=== PATIENT | male | born 1980 | race Caucasian/White ===

== ENCOUNTER 2020-06-27 20:43 | Emergency (ER) | payer OTHER ==
[~2020-06-27] VITALS: Ht 178 cm; Wt 75.0 kg
[2020-06-27] MEDS ORDERED: TETANUS,DIPTH,PERTUSS P/F (BOOSTRIX) 0.5 ML VIAL IM ONE (21:15)
--- NOTE | 2020-06-27 21:17 | ED Upper Extremity ---
General Chief Complaint: Laceration Stated Complaint: R ARM LAC Nursing Triage Note: c/o laceration to R arm at 1400 today Nursing Sepsis Screen: No Definite Risk History of Present Illness Date Seen by Provider: Jun 27, 2020 Time Seen by Provider: 21:16 Initial Comments This is a 40-year-old male who presents to the ER with a laceration to his right elbow that occurred at 1400 this afternoon. States he was at work when he cut his right elbow on a piece of sheet metal. He continued to work after injury and then proceeded to drink a fifth of vodka for the pain once he was off work. Sta cristo his friend made him come in to have the laceration taken care of. He does not recall his last tetanus at this time. No other injuries or concerns reported. Allergies and Home Medications Allergies Coded Allergies: No Known Drug Allergies (Unverified , 06/27/20) Home Medications Cephalexin 500 Mg Tablet, 500 MG PO TID Prescribed by: TANYA BOO on 06/27/203 Patient Home Medication List Home Medication List Reviewed: Yes Review of Systems Constitutional: no symptoms reported EENTM: no symptoms reported Respiratory: no symptoms reported Cardiovascular: no symptoms reported Gastrointestinal: no symptoms reported Genitourinary: no symptoms reported Musculoskeletal: no symptoms reported Skin: see HPI Psychiatric/Neurological: No Symptoms Reported Past [id number] Hx Patient Social History Alcohol Use: Denies Use Recreational Drug Use: No Recent Foreign Travel: No Contact w/Someone Who Travel: No Recent Infectious Disease Expo: No Past Medical History Surgeries: No Respiratory: No Cardiac: No Neurological: No Genitourinary: No Gastrointestinal: No Musculoskeletal: No Endocrine: No HEENT: No Cancer: No Psychosocial: No Integumentary: No Blood Disorders: No Physical Exam Vital Signs Vital Signs - First Documented 06/27/20 20:49 Temp 36.8 Pulse 128 Resp 18 B/P (MAP) 153/84 (107) Pulse Ox 98 Capillary Refill : Less Than 3 Seconds Height, Weight, BMI Height: '" Weight: lbs. oz. kg; 23.00 BMI Method: General Appearance: WD/WN Neck: full range of motion, normal inspection Cardiovascular: regular rate, rhythm, no murmur Respiratory: chest non-tender, lungs clear, normal breath sounds Shoulder: normal inspection, non-tender, no evidence of injury Elbow/Forearm: Right (laceration ) Wrist: Yes normal inspection, Yes non-tender, Yes no evidence of injury Hand: normal inspection, non-tender, no evidence of injury Neurologic/Tendon: normal sensation, normal motor functions, normal tendon functions Neurologic/Psychiatric: alert, normal mood/affect, oriented x 3 Skin: normal color, other (2cm x 0.5cm laceration on dorsal aspect of right elbow, distal to joint. ) Procedures/Interventions Other Wound Location Right dorsal elbow Wound Length (cm): 2 Wound's Depth, Shape: superficial, linear Wound Explored: clean Irrigated w/ Saline (ccs): 50 Anesthesia: 1% Lidocaine Volume Anesthetic (ccs): 1 Wound Debrided: minimal Suture: Ethlion Suture Size: 4-0 Number of Sutures: 3 Progress Tolerated well. Progress/Results/Core Measures Results/Orders My Orders Orders - TANYA BOO APRN Dipht,Pertuss(Acell),Tet Adult (Boostrix (06/27/20 21:15) Medications Given in ED Current Medications Medications Dose Ordered Sig/Demetris Route Start Time Stop Time Status Last Admin Dose Admin Diphtheria/ Tetanus/Acell Pertussis 0.5 ml ONCE ONCE IM 06/27/20 21:15 06/27/20 21:17 DC 06/27/20 21:22 0.5 ML Vital Signs/I&O 06/27/20 06/27/20 20:49 21:49 Temp 36.8 36.8 Pulse 128 128 Resp 18 18 B/P (MAP) 153/84 (107) 153/84 (107) Pulse Ox 98 98 Blood Pressure Mean: 107 Departure Impression Primary Impression: Laceration Disposition: 01 HOME, SELF-CARE Condition: Improved Departure-Patient Inst. Decision time for Depature: 21:44 Referrals: NO,LOCAL PHYSICIAN (PCP/Family) Primary Care Physician Patient Instructions: Laceration Repair With Stitches (DC) Add. Discharge Instructions: Plan: 1. Discharge home. 2. May take Tylenol or Ibuprofen as needed for pain per package instructions. 3. Keep incision clean and dry. Wash daily with soap and water, pat dry, and cover with dry dressing if you are working outside. 4. Your Tetanus was updated today. 5. Return on 07/04/20 for suture removal, if you are unable to come to this ER you can present to your local ER for suture removal. 6. Monitor for signs of infection: redness, swelling, drainage, fever. Follow up with your doctor or return if you develop any of these symptoms. 7. Return for any new or concerning symptoms. All discharge instructions reviewed with patient and/or family. Voiced understanding. Scripts Cephalexin (Cephalexin) 500 Mg Tablet 500 MG PO TID for 5 Days, #15 TAB 0 Refills Prov: TANYA BOO APRN 06/27/20 TANYA BOO APRN Jun 27, 2020 21:17
[2020-06-27] MEDS ORDERED: CEPH500T PO (21:48)
[2020-06-27 21:49] VITALS: BP 153/84
== END 2020-06-27 21:51 | disposition home or self-care (01) ==
LOC: ER 20:45
DX: S51.011A Laceration without foreign body of right elbow, initial encounter (principal); Z23 Encounter for immunization; W26.8XXA Contact with other sharp object(s), not elsewhere classified, initial encounter; Y92.59 Other trade areas as the place of occurrence of the external cause; Y99.0 Civilian activity done for income or pay
CPT/HCPCS: 12002; 90715

== ENCOUNTER 2020-07-05 15:25 | Emergency (ER) | payer OTHER ==
[~2020-07-05] VITALS: Ht 177.8 cm; Wt 74.8 kg
[~2020-07-05 15:25] MED LIST: CEPH500T PO
[2020-07-05 15:43] VITALS: BP 141/100
== END 2020-07-05 16:06 | disposition home or self-care (01) ==
LOC: EDUNIT# 15:25 → ER 15:27
DX: S51.011D Laceration without foreign body of right elbow, subsequent encounter (principal); X58.XXXD Exposure to other specified factors, subsequent encounter